=== PATIENT | male | born 1985 | race Caucasian/White ===

== ENCOUNTER 2020-02-24 18:19 | Emergency (ER) | payer SELFPAY ==
[~2020-02-24] VITALS: Ht 175.3 cm; Wt 158.8 kg
[2020-02-24 18:23] VITALS: BP 122/95
[2020-02-24] MEDS ORDERED: ACETAMINOPHEN EXTRA STRENGTH 500 MG TAB ONE (18:33)
[2020-02-24] MEDS ORDERED: ACETAMINOPHEN EXTRA STRENGTH 500 MG TAB PO ONE (18:35)
--- NOTE | 2020-02-24 18:49 | NUR ---
Morgan [email or web address] in EDM - 02/24/20 at 1850 by [email or web address] BIB FAMILY C/O COUGH, FEVER, FUNK X 1M WEEK AND C/O SOB, CHEST PAIN X TODAY. COVID TESTED + 02/19/20. ORAL TEMP 101.4 , P 125, RR 24 AT THIS TIME
--- NOTE | 2020-02-24 18:50 | NUR ---
BIB FAMILY C/O COUGH, FEVER, FUNK X 1WEEK AND C/O SOB, CHEST PAIN X TODAY. COVID TESTED + 02/19/20. ORAL TEMP 101.4 , P 125, RR 24 AT THIS TIME
[2020-02-24 20:00] LABS: BASOPHILS % (AUTO) 0.6 % (0.0-2.0); EOSINOPHILS % (AUTO) 0.4 % (0.0-4.0); HEMATOCRIT 47.6 % (36-52); LYMPHOCYTES # (AUTO) 1.4 K/uL (2.0-11.5); LYMPHOCYTES % (AUTO) 21.1 % (20.5-51.1); MEAN CORPUSCULAR HEMOGLOBIN 27 pg (27-31); MEAN CORPUSCULAR HGB CONC 34 g/dL (33-37); MEAN CORPUSCULAR VOLUME 81.2 fL (80-94); MONOCYTES # (AUTO) 0.9 K/uL (0.8-1.0); MONOCYTES % (AUTO) 13.1 % (1.7-9.3); NEUTROPHILS # (AUTO) 4.3 K/uL (1.8-7.7); NEUTROPHILS % (AUTO) 64.8 % (42.2-75.2); PLATELET COUNT (AUTO) 256 K/uL (140-450); RED BLOOD CELL COUNT(AUTO) 5.87 MIL/uL (4.20-6.10); RED CELL DISTRIBUTION WIDTH 15.2 % (11.6-13.7); WHITE BLOOD COUNT (AUTO) 6.6 K/uL (4.8-10.8)
[2020-02-24 20:07] LABS: ANION GAP 13.7 (8-16); CARBON DIOXIDE 27.1 mmol/L (21-32); CREATININE 0.8 mg/dL (0.6-1.3); POTASSIUM 3.8 mmol/L (3.5-5.1)
[2020-02-24 20:12] LABS: BILIRUBIN,DIRECT 0.1 mg/dL (0.0-0.3); TOTAL BILIRUBIN 0.5 mg/dL (0.0-1.0)
--- NOTE | 2020-02-24 21:45 | NUR ---
ALL RESULTS BACK AND NOTED BY ERMD AND FOR D/C
[2020-02-24 22:00] VITALS: BP 120/88
--- NOTE | 2020-02-24 22:00 | NUR ---
Patient discharged with v/s stable. Written and verbal after care instructions given and explained. Patient alert, oriented and verbalized understanding of instructions. Ambulatory with steady gait. All questions addressed prior to discharge. ID band removed. Patient advised to follow up with PMD. Rx of CODEINE PHOSPHATE given. Patient educated on indication of medication including possible reaction and side effects. Opportunity to ask questions provided and answered.
== END 2020-02-24 22:00 | disposition home or self-care (01) ==
LOC: MED 18:19
DX: R05 Cough (principal); Z20.828 Contact with and (suspected) exposure to other viral communicable diseases
CPT/HCPCS: 36415; 71045; 80048; 80076; 85025; 86140; 93005; 99285